=== PATIENT | female | born 1975 | race Caucasian/White ===

== ENCOUNTER 2016-09-21 22:32 | Emergency (ER) | payer BC, OTHER ==
[2016-09-22] MEDS ORDERED: ASPIRIN 81 MG TABLET, CHEWABLE PO ONE (01:04)
[2016-09-22] MEDS ORDERED: HYDROCHLOROTHIAZIDE 25 MG TABLET PO ONE (01:07)
[2016-09-22] MEDS ORDERED: DIAZEPAM 5 MG TABLET PO ONE (01:07)
[2016-09-22 01:15] LABS: ABSOLUTE EOSINOPHILS # (AUTO) 0.1 10^3/uL (0.0-0.6); ABSOLUTE LYMPHOCYTES (AUTO) 1.8 10^3/uL (0.5-4.7); ABSOLUTE MONOCYTES (AUTO) 1.2 10^3/uL (0.1-1.4); ABSOLUTE NEUT (AUTO) 7.5 10^3/uL (1.7-8.2); BASOPHILS % (AUTO) 0.4 % (0-2); EOSINOPHILS % (AUTO) 0.9 % (0-6); HEMATOCRIT 37.6 % (36.0-47.0); HEMOGLOBIN 12.8 g/dL (12.0-15.5); HGB HCT DIFFERENCE 0.8; LYMPHOCYTES % (AUTO) 16.9 % (13-45); MEAN CORPUSCULAR HEMOGLOBIN 32.1 pg (27.0-33.4); MEAN CORPUSCULAR HGB CONC 34.1 g/dL (32.0-36.0); MEAN CORPUSCULAR VOLUME 94 fl (80-97); MONOCYTES % (AUTO) 10.9 % (3-13); RED BLOOD COUNT 3.98 10^6/uL (3.72-5.28); RED CELL DISTRIBUTION WIDTH 14.2 % (11.5-14.0); SEGMENTED NEUTROPHILS % (AUTO) 70.9 % (42-78); WHITE BLOOD COUNT 10.6 10^3/uL (4.0-10.5)
[2016-09-22 01:33] LABS: ALANINE AMINOTRANSFERASE 34 U/L (9-52); ALBUMIN 4.4 g/dL (3.5-5.0); ALKALINE PHOSPHATASE 58 U/L (38-126); ANION GAP 15 (5-19); ASPARTATE AMINO TRANSFERASE 26 U/L (14-36); BILIRUBIN,DIRECT 0.4 mg/dL (0.0-0.4); BILIRUBIN,TOTAL 0.4 mg/dL (0.2-1.3); BLOOD UREA NITROGEN 19 mg/dL (7-20); CARBON DIOXIDE 23 mmol/L (22-30); CHLORIDE 98 mmol/L (98-107); CREATINE KINASE 40 U/L (30-135); CREATININE RESULT 0.85 mg/dL (0.52-1.25); GLUCOSE 89 mg/dL (75-110); SODIUM 135.9 mmol/L (137-145); TOTAL PROTEIN 7.4 g/dL (6.3-8.2)
[2016-09-22 01:36] LABS: POTASSIUM 4.2 mmol/L (3.6-5.0)
[2016-09-22 01:45] LABS: CREATINE KINASE MB 0.46 ng/mL (<4.55)
[2016-09-22 01:46] LABS: TROPONIN I < 0.012 ng/mL
[2016-09-22 02:08] LABS: APPEARANCE,URINE SLIGHTLY-CLOUDY; BILIRUBIN,URINE NEGATIVE (NEGATIVE); GLUCOSE, URINE NEGATIVE (NEGATIVE); KETONES,URINE NEGATIVE (NEGATIVE); LEUKOCYTE ESTERASE,URINE LARGE (NEGATIVE); NITRITE,URINE NEGATIVE (NEGATIVE); PROTEIN,URINE NEGATIVE (NEGATIVE); URINE SPECIFIC GRAVITY 1.008; UROBILINOGEN,URINE NEGATIVE mg/dL (<2.0)
--- NOTE | 2016-09-22 03:13 | RADIOLOGY REPORT (SQ) ---
EXAM DESCRIPTION: CHEST SINGLE VIEW COMPLETED DATE/TIME: 09/22/2016 2:37 am REASON FOR STUDY: chest pain COMPARISON: None. EXAM PARAMETERS: NUMBER OF VIEWS: One view. TECHNIQUE: Single frontal radiographic view of the chest acquired. RADIATION DOSE: NA LIMITATIONS: None. FINDINGS: LUNGS AND PLEURA: Severe elevation of left hemidiaphragm with hyperdense debris overlying the left upper abdominal quadrant extending into the left lower hemithorax. [id number] right-s ided mediastinal -cardiac shift. MEDIASTINUM AND HILAR STRUCTURES: As above. HEART AND VASCULAR STRUCTURES: Normal cardiac silhouette size. Moderate right-sided cardiac shift. BONES: No acute findings. HARDWARE: None in the chest. OTHER: No other significant finding. IMPRESSION: Elevation of the left hemidiaphragm new compared with prior CT from 02/23/2014. Recommen d further evaluation/surveillance with PA/lateral chest radiographs and/or contrast CT of the chest a nd abdomen. TECHNICAL DOCUMENTATION: JOB ID: [id number]
[2016-09-22] MEDS ORDERED: CEPHALEXIN 500 MG CAPSULE PO ONE (03:44)
--- NOTE | 2016-09-22 03:45 | ER Document Report ---
ED General - General Chief Complaint: Blood Pressure Problem Stated Complaint: BLOOD PRESSURE ISSUES Time Seen by Provider: 09/22/16 01:06 Notes: Patient is a 40-year-old female with past medical history of insomnia, prior hypertension who presents with a multitude of complaints. Patient states that she has had 2 weeks of intermittent lightheadedness, fatigue, exertional dyspnea , and left-sided chest pain that is a stabbing, intermittent, moderate pain that is worsened by movement and deep inspiration. Also notes that she has had very poor sleep pattern although this is a chronic problem over the last several years. She is not following with a primary care doctor regarding any of today's symptoms. She is unable clarify what improves or worsens her symptoms. She came to emergency department tonight as she checked her blood pressure and it was noted to be in the 180s systolic. She denies any fever, headache, hemoptysis, prior history of DVT or pulmonary embolus, no use of estrogen. TRAVEL OUTSIDE OF THE [place] IN LAST 30 DAYS: No - Related Data Allergies/Adverse Reactions: Shellfish * [Shellfish] Allergy (Intermediate, Verified 02/14/14 23:02) ITCHING, SWELLING OF THROAT caffeine [Caffeine] Allergy (Verified 02/14/14 23:02) bees Allergy (Uncoded 10/26/11 23:54) Past Medical History - General Information source: Patient - Social History Smoking Status: Never Smoker Chew tobacco use (# tins/day): No Frequency of alcohol use: Occasional Drug Abuse: None Lives with: Spouse/Significant other Family History: Reviewed & Not Pertinent Patient has suicidal ideation: No Patient has homicidal ideation: No - Past Medical History Cardiac Medical History: Reports: Hx Hypertension Pulmonary Medical History: Reports: Hx Asthma Renal/ Medical History: Denies: Hx Peritoneal Dialysis Past Surgical History: Reports: Hx Abdominal Surgery - Colostomy, Reversal, Hx Colostomy - with reversal - Immunizations Hx Diphtheria, Pertussis, Tetanus Vaccination: Yes Review of Systems - Review of Systems Notes: Constitutional: Negative for fever. HENT: Negative for sore throat. Eyes: Negative for visual changes. Cardiovascular: Positive for chest pain. Respiratory: Positive for shortness of breath. Gastrointestinal: Negative for abdominal pain, vomiting or diarrhea. Genitourinary: Positive for dysuria. Musculoskeletal: Negative for back pain. Skin: Negative for rash. Neurological: Negative for headaches, weakness or numbness. 10 point ROS negative except as marked above and in HPI. Physical Exam - Vital signs Vitals: Temp Pulse Resp BP Pulse Ox 97.8 F 102 H 20 168/108 H 97 09/21/16 22:39 09/21/16 22:39 09/21/16 22:39 09/21/16 22:39 09/21/16 22:39 Interpretation: Hypertensive, Tachycardic Notes: PHYSICAL EXAMINATION: GENERAL: Well-appearing, well-nourished and in no acute distress. HEAD: Atraumatic, normocephalic. EYES: Pupils equal round and reactive to light, extraocular movements intact, sclera anicteric, conjunctiva are normal. ENT: nares patent, oropharynx clear without exudates. Moist mucous membranes. NECK: Normal range of motion, supple without lymphadenopathy LUNGS: Breath sounds clear to auscultation bilaterally and equal. No wheezes rales or rhonchi. HEART: Regular tachycardia without murmurs ABDOMEN: Soft, nontender, normoactive bowel sounds. No guarding, no rebound. No masses appreciated. EXTREMITIES: Normal range of motion, no pitting or edema. No cyanosis. NEUROLOGICAL: No focal neurological deficits. Moves all extremities spontaneously and on command. PSYCH: Somewhat anxious SKIN: Warm, Dry, normal turgor, no rashes or lesions noted. Course - Re-evaluation Re-evalutation: 09/22/16 03:41 Patient presents with multiple vague complaints that did not appear to be concerning for any acute life-threatening pathology. Vitals are within normal limits at triage and at time of discharge. Physical examination is unremarkable. Patient has tolerated oral intake without difficulty. Patient was not noted to be in distress at any point during their ER visit. At this time, based on the reassuring evaluation, I do not suspect an acute ME, pulmonary embolus, aortic dissection, acute intra-abdominal pathology, stroke, or sepsis. Her laboratory evaluation is unremarkable with exception of findings consistent with an acute cystitis. Given the patient was complaining of some exertional fatigue and dyspnea, d-dimer was sent to further exclude an acute pulmonary embolus and is noted to be normal. EKG and troponin are unremarkable and again her history of 3 weeks of intermittent fatigue and dyspnea is not consistent with this diagnosis. Patient is having no focal abdominal tenderness on examination. I do also believe that a significant portion of patient's symptoms are coming from the fact that she sleeps only 2-3 hours at night and notes that her symptoms get progressively worse when she has had a multitude of nights in the room which she has only slept a small amount. I discussed sleep hygiene at length with patient and encouraged her to follow- up with primary care doctor regarding this issue. Will discharge with return precautions and follow-up recommendations. Verbal discharge instructions given a the bedside and opportunity for questions given. Medication warnings reviewed. Patient is in agreement with this plan and has verbalized understanding of return precautions and the need for primary care follow-up in the next 24-72 hours. - Vital Signs Vital signs: Temp Pulse Resp BP Pulse Ox 97.8 F 102 H 20 147/96 H 96 09/21/16 22:39 09/21/16 22:39 09/22/16 04:09 09/22/16 04:09 09/22/16 04:09 - Laboratory Result Diagrams: 09/22/16 00:35 09/22/16 00:35 Laboratory results interpreted by me: 09/22/16 09/22/16 09/22/16 00:35 00:35 00:45 WBC 10.6 H RDW 14.2 H Sodium 135.9 L Urine Blood SMALL H Ur Leukocyte Esterase LARGE H - Diagnostic Test Radiology reviewed: Image reviewed, Reports reviewed Radiology results interpreted by me: 09/22/16 03:41 Chest x-ray: Elevation of the left hemidiaphragm which is chronic - EKG Interpretation by Me Additional EKG results interpreted by me: 09/22/16 06:26 Sinus tachycardia. Rate 102. No ST elevations or depressions. QTC is 449. Discharge - Discharge Clinical Impression: Essential hypertension, Sleep deprivation, Cystitis Fatigue Qualifiers: Fatigue type: unspecified Qualified Code(s): R53.83 - Other fatigue Condition: Good Disposition: HOME, SELF-CARE Additional Instructions: You were seen today for blood pressure that was high. This is a long-term risk factor for multiple medical problems including heart attack and stroke. However, the blood pressure in of itself will not cause you to have an acute stroke or heart attack over the course of just several days or weeks. You need to have a gradual reduction of your blood pressure back to normal levels over the next several months in conjunction with your primary care physician. Return if you develop headache, weakness, numbness, chest pain, pass out, or have any other symptoms that are concerning to you. Your urine shows findings consistent with a urinary tract infection. Please take all the antibiotics as directed even if your symptoms have improved. Please follow-up with your primary care physician as needed. Return to emergency room if you develop fever >101F, persistent vomiting, become lethargic , have severe pain in your sides, or any other symptoms that are concerning to you. The remainder of your blood work is normal today and does not suggest an alternative life-threatening cause of your symptoms today. As we have discussed it is very important that you get an appropriate amount of sleep. Please follow-up with your primary care doctor regarding your chronic difficulty with sleep. Prescriptions: Cephalexin Monohydrate [Keflex 500 mg Capsule] 500 mg PO QID #20 capsule
[2016-09-22 04:17] VITALS: BP 147/96
--- NOTE | 2016-09-22 16:32 | EKG REPORT ---
SEVERITY:- BORDERLINE ECG - SINUS TACHYCARDIA BORDERLINE T ABNORMALITIES, ANT-LAT LEADS : Confirmed by: Hansel Cordero 22-Sep-2016 16:32:42
== END 2016-09-22 04:19 | disposition home or self-care (01) ==
LOC: ER 22:32
DX: N30.90 Cystitis, unspecified without hematuria (principal); I10 Essential (primary) hypertension; R53.83 Other fatigue; R06.00 Dyspnea, unspecified; R07.9 Chest pain, unspecified; Z72.820 Sleep deprivation
CPT/HCPCS: 36415; 71010; 80053; 81001; 82550; 82553; 84484; 85025; 85379; 87086; 87088; 93005; 93010; 99284